=== PATIENT | male | born 1970 | race African-American/Black ===

== ENCOUNTER 2019-04-27 08:56 | Day surgery (SDC) | payer OTHER ==
[2019-04-24 09:49] VITALS: BMI 27.5
--- NOTE | 2019-04-27 11:16 | OP ---
DATE OF PROCEDURE: 04/27/2019 PROCEDURE PERFORMED: Colonoscopy with snare polypectomy. PREOPERATIVE DIAGNOSIS: Colon cancer screening. DESCRIPTION OF PROCEDURE: Informed consent was obtained from the patient. He was sedated with total intravenous anesthesia. The rectal exam was performed and was normal. The colonoscope was advanced to the cecum without difficulty. The ileocecal valve and appendiceal orifice were clearly identified. The preparation quality was excellent. There was a 5-mm polyp, removed by cold snare polypectomy from the transverse colon. The remainder of the colonic mucosa was normal. Retroflexed views in the rectum were normal. IMPRESSION: 1. A 5-mm polyp removed from the transverse colon. 2. Otherwise normal colonoscopy. RECOMMENDATIONS: 1. Repeat colonoscopy in 5 years if the polyp is an adenoma. 2. Repeat colonoscopy in 10 years if the polyp is hyperplastic. Job ID: [id number]
== END 2019-04-27 11:45 | disposition home or self-care (01) ==
LOC: SDC 08:56
PROVIDERS: ATTEND Internal Medicine Gastroenterology
PROC: 0DBL8ZZ Excision of Transverse Colon, Via Natural or Artificial Opening Endoscopic (ICD-10-PCS; principal; 2019-04-27)
DX: Z12.11 Encounter for screening for malignant neoplasm of colon (principal); D12.3 Benign neoplasm of transverse colon
CPT/HCPCS: 88305